=== PATIENT | female | born 1930 | race Caucasian/White ===

== ENCOUNTER → 2019-03-22 | Outpatient (REF) | payer MEDICARE ==
[2019-03-22 17:21] LABS: FREE T4 0.76 NG/DL (0.76-1.46); THYROID STIMULATING HORMONE 3.1 uIU/ML (0.358-3.740)
== END ==
LOC: M SFHCLERA 14:36
PROVIDERS: ATTEND Nurse Practitioner Family
DX: E03.9 Hypothyroidism, unspecified (principal); Z23 Encounter for immunization
CPT/HCPCS: 84439; 84443; 90682; G0008; G0463

== ENCOUNTER → 2019-03-27 | Outpatient (CLI) | payer MEDICARE ==
--- NOTE | 2019-03-27 11:17 | REP ---
LEFT WRIST, FOUR VIEWS: Four views of the left wrist performed. No fracture or dislocation is seen. There is moderate narrowing, spurring and subchondral sclerosis at the joints between the scaphoid and trapezium as well as trapezium in the base of the 1st metacarpal. IMPRESSION: No evidence of acute fracture or dislocation. Electronically Signed by Abimael Richard MD 03/27/2019 12:24 P
--- NOTE | 2019-03-27 11:49 | REP ---
Clinical: Pain. Technique: AP and lateral views of the left forearm. Findings: Evaluation is limited by significant osteopenia and degenerative changes. No obvious acute fracture or dislocation identified. Impression: No acute fracture or dislocation appreciated. Electronically Signed by Warren Gonzalez MD 03/27/2019 11:40 A
== END ==
LOC: M LRY 10:23
PROVIDERS: ATTEND Nurse Practitioner Family
DX: M85.822 Other specified disorders of bone density and structure, left upper arm (principal); M19.032 Primary osteoarthritis, left wrist; M79.632 Pain in left forearm; M25.532 Pain in left wrist
CPT/HCPCS: 73090; 73110; G0463

== ENCOUNTER 2019-06-03 07:18 | Emergency (ER) | payer MEDICARE ==
[2019-06-03 07:46] LABS: BASO % 0.7 % (0.0-1.0); EOS # 0.4 10^3/uL (0.0-0.5); EOS % 7.4 % (0.0-3.0); HEMATOCRIT 36.8 % (36.0-47.0); HEMOGLOBIN 11.6 g/dl (12.0-15.5); LYMPH # 2.3 10^3/uL (1.5-5.0); LYMPH % 40.6 % (24.0-44.0); MEAN CORPUSCULAR HGB CONC 31.5 g/dl (32.0-36.5); MEAN CORPUSCULAR VOLUME 101.7 fl (80.0-96.0); MONO # 0.5 10^3/uL (0.0-0.8); NEUTROPHILS # 2.4 10^3/uL (1.5-8.5); NEUTROPHILS % 43.1 % (36.0-66.0); PLATELET COUNT, AUTOMATED 196 10^3/uL (150-450); RED BLOOD COUNT 3.62 10^6/uL (4.00-5.40); WHITE BLOOD COUNT 5.7 10^3/uL (4.0-10.0)
--- NOTE | 2019-06-03 08:17 | REP ---
Portable chest, 07:55, 08:00 a.m., single AP view with the patient upright: There are no comparisons. The lung reina are clear. The cardiac size is normal. The azalea, mediastinum, and skeletal structures are unremarkable. Impression: Negative portable chest. Electronically Signed by Abimael Slater MD 06/03/2019 08:10 A
[2019-06-03 08:19] LABS: ALBUMIN 3.3 GM/DL (3.2-5.2); ALT/SGPT 10 U/L (12-78); BILIRUBIN,DIRECT 0.2 MG/DL (0.0-0.2); BILIRUBIN,TOTAL 0.5 MG/DL (0.2-1.0); CK-MB VALUE MASS < 1.0 NG/ML (<3.6); CPK CREATINE PHOSPHOKINASE 28 U/L (26-192); MB/CK RELATIVE INDEX 3.57 (< OR =4); NT-PRO BNP 649 PG/ML (<450); TOTAL PROTEIN 6.4 GM/DL (6.4-8.2); TROPONIN I < 0.02 NG/ML (< 0.10)
--- NOTE | 2019-06-03 08:19 | REP ---
Left shoulder three views: There is demineralization. There is acromioclavicular osteoarthritis. There is no fracture or dislocation. There is a small bone island in the humeral head. Electronically Signed by Abimael Slater MD 06/03/2019 08:11 A
[2019-06-03] MEDS ORDERED: METF500T13 PO (08:31)
[2019-06-03] MEDS ORDERED: SIMV20TA22 PO (08:31)
[2019-06-03] MEDS ORDERED: METO37.5 PO (08:31)
[2019-06-03] MEDS ORDERED: LEVO25TA5 PO (08:31)
[2019-06-03] MEDS ORDERED: CITA10TA5 PO (08:31)
[2019-06-03] MEDS ORDERED: ACET650T15 PO (08:31)
[2019-06-03] MEDS ORDERED: ASPI81TA85 PO (08:31)
[2019-06-03 09:08] LABS: BLOOD UREA NITROGEN 19 MG/DL (7-18); CARBON DIOXIDE LEVEL 26 MEQ/L (21-32); CHLORIDE LEVEL 110 MEQ/L (98-107); CREATININE FOR GFR 1.16 MG/DL (0.55-1.30); GLUCOSE, FASTING 193 MG/DL (70-100); POTASSIUM SERUM 4.3 MEQ/L (3.5-5.1); SODIUM LEVEL 144 MEQ/L (136-145)
[2019-06-03 10:45] VITALS: BP 123/64
--- NOTE | 2019-06-03 19:09 | ECGEPIP ---
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
== END 2019-06-03 10:57 | disposition home or self-care (01) ==
LOC: EDBD 07:18 → M ED 07:18
DX: F43.0 Acute stress reaction (principal); F41.1 Generalized anxiety disorder; I10 Essential (primary) hypertension; I45.10 Unspecified right bundle-branch block; E78.5 Hyperlipidemia, unspecified; E11.9 Type 2 diabetes mellitus without complications; E03.9 Hypothyroidism, unspecified; G30.9 Alzheimer's disease, unspecified; H40.9 Unspecified glaucoma; Z79.82 Long term (current) use of aspirin; Z79.84 Long term (current) use of oral hypoglycemic drugs; Z79.899 Other long term (current) drug therapy; Z98.84 Bariatric surgery status

== ENCOUNTER 2019-06-17 15:01 | Emergency (ER) | payer MEDICARE, OTHER ==
[~2019-06-17] VITALS: Ht 152.4 cm; Wt 55.0 kg
[~2019-06-17 15:01] MED LIST: ACET650T15 PO; ASPI81TA85 PO; CITA10TA5 PO; LEVO25TA5 PO; METF500T13 PO; METO37.5 PO; SIMV20TA22 PO
--- NOTE | 2019-06-17 15:36 | REP ---
Clinical: Trauma. Fall. Findings: Age-related atrophy and microvascular ischemic changes are appreciated. The ventricles and sulci are symmetric. Richard-white differentiation is maintained. There is no evidence for acute intracranial hemorrhage, mass/mass effect, pathology or infarction. No extra-axial fluid collection. Calvarium is intact. Paranasal sinuses and mastoid air cells are clear. Impression: Age related atrophy and microvascular ischemic changes. No acute intracranial hemorrhage, infarction, or mass/mass effect. Electronically Signed by Warren Gonzalez MD 06/17/2019 03:27 P
--- NOTE | 2019-06-17 15:38 | REP ---
Clinical: Trauma. Fall. Technique: Axial noncontrast images from the skull base to the thoracic inlet with coronal and sagittal re-formations. Findings: Advanced age-related osteopenia and multilevel degenerative disc osteophyte complexes are appreciated. No acute fracture or dislocation identified. Spinal canal is grossly patent. Paravertebral soft tissues are relatively normal. Impression: Age-related osteopenia and advanced multilevel degenerative spondylosis. No acute fracture / compression injury or subluxation. Electronically Signed by Warren Gonzalez MD 06/17/2019 03:30 P
--- NOTE | 2019-06-17 16:55 | REP ---
Clinical: Trauma. Fall. Technique: AP, lateral, bilateral oblique views of the right hand. Findings: Marked osteopenia and advanced osteoarthritic degenerative changes are appreciated which limit evaluation for subtle acute injury. No obvious acute fracture or dislocation identified. Impression: Osteopenia and advanced degenerative changes. No obvious acute fracture or dislocation. Electronically Signed by Warren Gonzalez MD 06/17/2019 04:47 P
--- NOTE | 2019-06-17 16:57 | REP ---
Clinical: Trauma. Fall. Technique: AP and lateral views of the right forearm. Findings: Osteopenia and degenerative changes are appreciated. No obvious acute fracture or dislocation. No subcutaneous emphysema or foreign body. Impression: Osteopenia and degenerative changes. No acute fracture or dislocation. Electronically Signed by Warren Gonzalez MD 06/17/2019 04:48 P
[2019-06-17] MEDS ORDERED: ADACEL/BOOSTRIX VACCINE (DIPHTH/PERTUSS/ACELL/TETANUS)0.5ML SYR (90715) IM ONE (17:45)
[2019-06-17 18:31] VITALS: BP 140/65
== END 2019-06-17 18:52 | disposition home or self-care (01) ==
LOC: M ED 15:01 → EDBD 15:01 → M ED 18:52
DX: S61.411A Laceration without foreign body of right hand, initial encounter (principal); S00.81XA Abrasion of other part of head, initial encounter; W10.8XXA Fall (on) (from) other stairs and steps, initial encounter; Y92.018 Other place in single-family (private) house as the place of occurrence of the external cause; G30.9 Alzheimer's disease, unspecified; Z98.84 Bariatric surgery status; Z79.899 Other long term (current) drug therapy; Z79.890 Hormone replacement therapy; Z79.84 Long term (current) use of oral hypoglycemic drugs; Z79.82 Long term (current) use of aspirin; Z87.891 Personal history of nicotine dependence

== ENCOUNTER → 2020-06-24 | Outpatient (CLI) | payer MEDICARE, OTHER ==
[~2020-06-24] MED LIST changes: -ASPI81TA85 PO; +ASPI81TA86 PO
[2020-06-24 13:29] LABS: BASO % 1.2 % (0.0-1.0); EOS # 0.1 10^3/uL (0.0-0.5); EOS % 3.9 % (0.0-3.0); HEMATOCRIT 36.9 % (36.0-47.0); HEMOGLOBIN 11.6 g/dl (12.0-15.5); LYMPH # 1.7 10^3/uL (1.5-5.0); LYMPH % 50.1 % (24.0-44.0); MEAN CORPUSCULAR HEMOGLOBIN 32.3 pg (27.0-33.0); MEAN CORPUSCULAR HGB CONC 31.4 g/dl (32.0-36.5); MEAN CORPUSCULAR VOLUME 102.8 fl (80.0-96.0); MONO # 0.2 10^3/uL (0.0-0.8); MONO % 5.9 % (2.0-8.0); NEUTROPHILS # 1.3 10^3/uL (1.5-8.5); NEUTROPHILS % 38.9 % (36.0-66.0); PLATELET COUNT, AUTOMATED 200 10^3/uL (150-450); RED BLOOD COUNT 3.59 10^6/uL (4.00-5.40); WHITE BLOOD COUNT 3.4 10^3/uL (4.0-10.0)
[2020-06-24 13:50] LABS: ALBUMIN 3.5 GM/DL (3.2-5.2); BILIRUBIN,TOTAL 0.3 MG/DL (0.2-1.0); CALCIUM LEVEL 9.1 MG/DL (8.8-10.2); CHOLESTEROL RISK RATIO 2.573 (<5); CREATININE FOR GFR 1.19 MG/DL (0.55-1.30); FREE T4 0.79 NG/DL (0.76-1.46); GLOMERULAR FILTRATION RATE 45.5 (>32); POTASSIUM SERUM 4.6 MEQ/L (3.5-5.1); THYROID STIMULATING HORMONE 3.25 uIU/ML (0.358-3.740); TOTAL PROTEIN 6.6 GM/DL (6.4-8.2)
[2020-06-24 13:52] LABS: HEMOGLOBIN A1c 7.6 %
== END ==
LOC: M WUC 11:21
PROVIDERS: ATTEND Nurse Practitioner Family
DX: E03.9 Hypothyroidism, unspecified (principal); I10 Essential (primary) hypertension; E78.2 Mixed hyperlipidemia; E11.9 Type 2 diabetes mellitus without complications

== ENCOUNTER 2020-08-29 13:39 | Emergency (ER) | payer MEDICARE, OTHER ==
[~2020-08-29] VITALS: Ht 157.5 cm; Wt 56.8 kg
[2020-08-29] MEDS ORDERED: NS 500 ML IV ONE (14:10)
[2020-08-29 14:27] LABS: BASO % 0.2 % (0.0-1.0); EOS % 0.7 % (0.0-3.0); HEMATOCRIT 37.8 % (36.0-47.0); HEMOGLOBIN 12.1 g/dl (12.0-15.5); LYMPH # 0.9 10^3/uL (1.5-5.0); LYMPH % 15.4 % (24.0-44.0); MEAN CORPUSCULAR HEMOGLOBIN 32.6 pg (27.0-33.0); MEAN CORPUSCULAR VOLUME 101.9 fl (80.0-96.0); MONO # 0.1 10^3/uL (0.0-0.8); NEUTROPHILS # 4.5 10^3/uL (1.5-8.5); NEUTROPHILS % 81.5 % (36.0-66.0); PLATELET COUNT, AUTOMATED 185 10^3/uL (150-450); RED BLOOD COUNT 3.71 10^6/uL (4.00-5.40); WHITE BLOOD COUNT 5.5 10^3/uL (4.0-10.0)
--- NOTE | 2020-08-29 14:32 | REP ---
INDICATION: abdominal/flank pain; ?pyelo vs stone COMPARISON: None TECHNIQUE: Axial noncontrast images from the lung bases to the pubic symphysis with coronal and sagittal reformations. This CT examination was performed using the following dose reduction techniques: Automated exposure control, adjustment of mA and/or kv according to the patient's size, and use of iterative reconstruction technique. FINDINGS: Lung bases demonstrate chronic appearing changes. Evidence for prior gastric bypass surgery, splenectomy, and cholecystectomy. Liver, left upper quadrant splenule, pancreas, bilateral adrenal glands and kidneys are normal for noncontrast evaluation. No perinephric stranding, nephrolithiasis or hydroureteronephrosis is appreciated. The enteric system is without obstruction or acute inflammatory process. Colonic diverticulosis noted without acute diverticulitis. Pelvis demonstrates normal bladder and evidence for prior hysterectomy. No ascites. No free air. No adenopathy. Atherosclerotic changes to the aorta without aneurysm. Musculoskeletal structures demonstrate age-related osteopenia and degenerative changes without acute process. IMPRESSION: No acute abdominopelvic pathology appreciated. Chronic and postsurgical changes as noted above. <Electronically signed by Warren Gonzalez > 08/29/20 [id number]
--- NOTE | 2020-08-29 14:41 | REP ---
INDICATION: AMS; chills COMPARISON: 06/03/2019 TECHNIQUE: Portable AP view of the chest FINDINGS: The mediastinum and cardiac silhouette are stable and within normal limits for portable technique. The lung reina are clear without acute consolidation, effusion, or pneumothorax. Skeletal structures demonstrate age-related degenerative changes. IMPRESSION: No acute cardiopulmonary process appreciated. No focal consolidation or effusion. <Electronically signed by Warren Gonzalez > 08/29/20 [id number]
[2020-08-29 14:51] LABS: ALBUMIN 3.6 GM/DL (3.2-5.2); ALT/SGPT 10 U/L (12-78); BILIRUBIN,DIRECT 0.2 MG/DL (0.0-0.2); BILIRUBIN,TOTAL 0.5 MG/DL (0.2-1.0); BLOOD UREA NITROGEN 17 MG/DL (7-18); CARBON DIOXIDE LEVEL 25 MEQ/L (21-32); CHLORIDE LEVEL 106 MEQ/L (98-107); CK-MB VALUE MASS < 1.0 NG/ML (<3.6); CPK CREATINE PHOSPHOKINASE 36 U/L (26-192); CREATININE FOR GFR 1.23 MG/DL (0.55-1.30); GLOMERULAR FILTRATION RATE 43.8 (>32); GLUCOSE, FASTING 194 MG/DL (70-100); LIPASE 114 U/L (73-393); MB/CK RELATIVE INDEX 2.78 (< OR =4); POTASSIUM SERUM 4.4 MEQ/L (3.5-5.1); SODIUM LEVEL 138 MEQ/L (136-145); TROPONIN I < 0.02 NG/ML (< 0.10)
[2020-08-29] MEDS ORDERED: cefTRIAXone SOD 2 GM in D5W MINI-BAG PLUS 50 ML IV ONE (15:30)
[2020-08-29] MEDS ORDERED: METO1TAB87 PO (16:15)
[2020-08-29] MEDS ORDERED: ACET500T15 PO (16:15)
[2020-08-29] MEDS ORDERED: XALA0.007 OS (16:15)
[2020-08-29 16:38] LABS: RSV AMPLIFICATION NEGATIVE (NEGATIVE)
[2020-08-29 17:00] VITALS: BP 111/54
[2020-08-29] MEDS ORDERED: CEPH500C PO (17:01)
--- NOTE | 2020-08-29 19:20 | ECGEPIP ---
[facility] - ED Test Date: 2020-08-29 Pat Name: MADISON SALES Department: Room: - Gender: Female [employer] Diver: JEFFREY : 1930 Requested By: WESTON MAYFIELD Order Number: [id number] Reading MD: Judith Sanchez Measurements Intervals [place] Rate: 61 P: 50 OR: 144 QRS: 18 QRSD: 112 T: 24 QT: 464 QTc: 467 Interpretive Statements Normal sinus rhythm Right bundle branch block cw 06/03/19 rate decreased Electronically Signed on 08-29-2020 19:20:00 EDT by Judith Sanchez
== END 2020-08-29 17:27 | disposition home or self-care (01) ==
LOC: M ED 13:39
DX: F03.90 Unspecified dementia, unspecified severity, without behavioral disturbance, psychotic disturbance, mood disturbance, and anxiety (principal); N39.0 Urinary tract infection, site not specified; I45.10 Unspecified right bundle-branch block; E11.9 Type 2 diabetes mellitus without complications; E03.9 Hypothyroidism, unspecified; Z98.84 Bariatric surgery status; Z79.84 Long term (current) use of oral hypoglycemic drugs; Z79.899 Other long term (current) drug therapy
CPT/HCPCS: 51701; 71045; 74176; 80048; 80076; 81001; 82550; 82553; 83605; 83690; 84484; 85025; 87040; 87088; 87186; 87631; 93005; 93041; 96365; 99285; J0696

== ENCOUNTER 2020-09-11 17:49 | Emergency (ER) | payer MEDICARE, OTHER ==
[~2020-09-11] VITALS: Ht 154.9 cm; Wt 56.8 kg
[~2020-09-11 17:49] MED LIST changes: +ACET500T15 PO; +CEPH500C PO; +METO1TAB87 PO; +XALA0.007 OS
[2020-09-11 17:50] VITALS: BP 117/56
--- NOTE | 2020-09-11 18:37 | REP ---
INDICATION: fall pain, trauma. COMPARISON: None. TECHNIQUE: Five views lumbosacral spine. FINDINGS: There is no compression fracture. There is slight anterolisthesis of L5 on S1 due to posterior facet arthropathy. There is mild disc space narrowing at L3-4. There is significant spurring and sclerosis at the facets of L5-S1. Posterior elements are intact. Multiple surgical clips are seen in the upper abdomen. IMPRESSION: No acute fracture or dislocation. Degenerative changes, most significantly at the facets of L5-S1. <Electronically signed by Abimael Richard > 09/11/20 [id number]
--- NOTE | 2020-09-11 18:38 | REP ---
INDICATION: fall pain, trauma. COMPARISON: None. TECHNIQUE: AP view pelvis, AP and frogleg views bilateral hips. FINDINGS: There is no acute fracture or dislocation. Mild degenerative changes are seen at both hip joints with mild joint space narrowing, subchondral sclerosis and spurring. IMPRESSION: No acute fracture or dislocation. <Electronically signed by Abimael Richard > 09/11/20 [id number]
== END 2020-09-11 21:09 | disposition home or self-care (01) ==
LOC: M ED 17:49
DX: S33.5XXA Sprain of ligaments of lumbar spine, initial encounter (principal); S73.109A Unspecified sprain of unspecified hip, initial encounter; W01.0XXA Fall on same level from slipping, tripping and stumbling without subsequent striking against object, initial encounter; Y92.009 Unspecified place in unspecified non-institutional (private) residence as the place of occurrence of the external cause; Y93.9 Activity, unspecified; Y99.9 Unspecified external cause status; E11.9 Type 2 diabetes mellitus without complications; I10 Essential (primary) hypertension; E78.5 Hyperlipidemia, unspecified; F03.90 Unspecified dementia, unspecified severity, without behavioral disturbance, psychotic disturbance, mood disturbance, and anxiety; M51.36 Other intervertebral disc degeneration, lumbar region; Z79.84 Long term (current) use of oral hypoglycemic drugs; Z79.899 Other long term (current) drug therapy

== ENCOUNTER 2020-10-25 10:04 | Emergency (ER) | payer MEDICARE, OTHER ==
[~2020-10-25] VITALS: Ht 154.9 cm; Wt 56.8 kg
[2020-10-25] MEDS ORDERED: FAMO10TA53 PO (11:33)
--- NOTE | 2020-10-25 12:38 | REP ---
INDICATION: evaluate for inc stool burden. dilated bowel loops COMPARISON: None. TECHNIQUE: Supine view of the abdomen and pelvis. FINDINGS: Bowel gas pattern is nonspecific and without obstruction or perforation. No significant fecal stasis. No organomegaly. Multiple phleboliths the pelvis. Skeletal structures intact. Surgical clips in upper abdomen. IMPRESSION: Essentially normal age-appropriate abdominal radiograph. <Electronically signed by Warren Gonzalez > 10/25/20 [id number]
[2020-10-25] MEDS ORDERED: SIMETHICONE 80MG CHEW TAB PO ONE (12:40)
[2020-10-25 12:48] LABS: BASO % 0.7 % (0.0-1.0); EOS # 0.1 10^3/uL (0.0-0.5); EOS % 2.3 % (0.0-3.0); HEMATOCRIT 36.5 % (36.0-47.0); HEMOGLOBIN 11.6 g/dl (12.0-15.5); LYMPH # 1.8 10^3/uL (1.5-5.0); LYMPH % 39.9 % (24.0-44.0); MEAN CORPUSCULAR HGB CONC 31.8 g/dl (32.0-36.5); MEAN CORPUSCULAR VOLUME 100.6 fl (80.0-96.0); MONO # 0.3 10^3/uL (0.0-0.8); MONO % 6.2 % (2.0-8.0); NEUTROPHILS # 2.2 10^3/uL (1.5-8.5); NEUTROPHILS % 50.7 % (36.0-66.0); PLATELET COUNT, AUTOMATED 235 10^3/uL (150-450); RED BLOOD COUNT 3.63 10^6/uL (4.00-5.40); WHITE BLOOD COUNT 4.4 10^3/uL (4.0-10.0)
[2020-10-25 13:16] LABS: ALBUMIN 3.4 GM/DL (3.2-5.2); ALT/SGPT 12 U/L (12-78); BILIRUBIN,DIRECT < 0.1 MG/DL (0.0-0.2); BILIRUBIN,TOTAL 0.3 MG/DL (0.2-1.0); LIPASE 163 U/L (73-393); TOTAL PROTEIN 6.4 GM/DL (6.4-8.2)
[2020-10-25 15:30] VITALS: BP 129/58
[2020-10-25] MEDS ORDERED: CEPH500C PO (16:17)
--- NOTE | 2020-10-25 21:09 | ECGEPIP ---
[facility] - ED Test Date: 2020-10-25 Pat Name: MADISON SALES Department: Room: - Gender: Female Nurse Orthopaedic: LR : 1930 Requested By: Jong Earl Order Number: [id number] Reading MD: Lou Vyas Measurements Intervals [place] Rate: 64 P: 46 ND: 152 QRS: -2 QRSD: 118 T: 35 QT: 474 QTc: 489 Interpretive Statements Sinus rhythm with premature atrial complexes Right bundle branch block Inferior infarct , age undetermined prolonged qtc Electronically Signed on 10-25-2020 21:09:16 EDT by Lou Vyas
== END 2020-10-25 15:46 | disposition left against medical advice (07) ==
LOC: EDBD 10:04 → M ED 10:04
DX: N39.0 Urinary tract infection, site not specified (principal); I45.10 Unspecified right bundle-branch block; Z53.9 Procedure and treatment not carried out, unspecified reason; E78.5 Hyperlipidemia, unspecified; F03.90 Unspecified dementia, unspecified severity, without behavioral disturbance, psychotic disturbance, mood disturbance, and anxiety; E03.9 Hypothyroidism, unspecified; F41.9 Anxiety disorder, unspecified; Z98.84 Bariatric surgery status; Z79.84 Long term (current) use of oral hypoglycemic drugs; Z79.899 Other long term (current) drug therapy